=== PATIENT | female | born 1940 ===

== ENCOUNTER 2018-06-25 10:44 | Emergency (ER) | payer MEDICARE ==
[2018-06-25 10:45] VITALS: BMI 27.6
[2018-06-25 10:53] VITALS: TEMP 99.1
--- NOTE | 2018-06-25 10:54 | ED PDOC ---
Arrival/HPI - General Time Seen by Provider: 06/25/18 10:52 Historian: Patient - History of Present Illness Narrative History of Present Illness (Text): 06/25/18 10:53 78 y/o female, pmh including CHF/HLD/Hypothyroidism/osteoarthritis, taking aspirin and plavix, nkda, c/o feeling fatigue and osteoarthiritis pain for the past 2 weeks. Pt. stated that she has chronic osteoarthirits and CHF, been having generalized bodyache for the past 2 weeks, relief with tylenol, no fall or trauma, stated that she doesn't feel well, no chest pain or palpitation, no shortness of breath, no night sweat, no dizziness, no diarrhea, no other medical or psychological complaints. Past Medical History - Provider Review Nursing Documentation Reviewed: Yes - Cardiac Hx Cardiac Disorders: Yes Hx Congestive Heart Failure: Yes Hx Hypertension: Yes Hx Peripheral Edema: Yes - Pulmonary Hx Respiratory Disorders: No - Neurological Hx Neurological Disorder: Yes HX Cerebrovascular Accident: Yes - HEENT Hx HEENT Disorder: No - Renal Hx Renal Disorder: No - Endocrine/Metabolic Hx Endocrine Disorders: Yes Hx Hypothyroidism: Yes - Hematological/Oncological Hx Blood Disorders: No - Integumentary Hx Dermatological Disorder: No - Musculoskeletal/Rheumatological Hx Musculoskeletal Disorders: Yes Hx Rheumatoid Arthritis: Yes - Gastrointestinal Hx Gastrointestinal Disorders: No - Genitourinary/Gynecological Hx Genitourinary Disorders: Yes Other/Comment: fibroids - Psychiatric Hx Psychophysiologic Disorder: No Hx Substance Use: No - Surgical History Hx Orthopedic Surgery: Yes - Anesthesia Hx Anesthesia: Yes Hx Anesthesia Reactions: No Family/Social History - Physician Review Nursing Documentation Reviewed: Yes Family/Social History: Unknown Family HX Smoking Status: Former Smoker Hx Alcohol Use: No Hx Substance Use: No Allergies/Home Meds Allergies/Adverse Reactions: Allergies No Known Allergies Allergy (Verified 06/25/18 10:46) Home Medications: Home Meds Medication Instructions Recorded Confirmed Levothyroxine Sodium [Levo-T] 88 mcg PO 0630 12/08/17 06/25/18 Famotidine [Pepcid] 20 mg PO DAILY 02/08/18 06/25/18 Furosemide [Lasix] 40 mg PO DAILY 02/08/18 06/25/18 Latanoprost 0.005% Opht [XALATAN 2.5 ml OU HS 02/08/18 06/25/18 2.5 Ml] Review of Systems - Review of Systems Constitutional: Fatigue. absent: Fevers Eyes: absent: Vision Changes ENT: absent: Hearing Changes Respiratory: absent: SOB, Cough Cardiovascular: absent: Chest Pain Gastrointestinal: absent: Abdominal Pain, Nausea, Vomiting Musculoskeletal: Arthralgias. absent: Back Pain Skin: absent: Rash, Pruritis Neurological: absent: Headache, Dizziness Psychiatric: absent: Anxiety, Depression, Suicidal Ideation Physical Exam Vital Signs Reviewed: Yes Vital Signs Temp Pulse Resp BP Pulse Ox 06/25/18 10:48 99.1 F 62 17 170/94 H 98 Temperature: Afebrile Blood Pressure: Hypertensive Pulse: Regular Respiratory Rate: Normal Appearance: Positive for: Well-Appearing, Non-Toxic, Comfortable Pain Distress: Mild Mental Status: Positive for: Alert and Oriented X 3 - Systems Exam Head: Present: Atraumatic, Normocephalic Pupils: Present: PERRL Extroacular Muscles: Present: EOMI Conjunctiva: Present: Normal Ears: Present: NORMAL TM, Normal Canal. No: Erythema Mouth: Present: Moist Mucous Membranes Pharnyx: No: ERYTHEMA, EXUDATE, TONSILS ENLARGED Nose (External): Present: Atraumatic. No: Abrasion, Contusion, Laceration Nose (Internal): Present: Normal Inspection, No Active Bleeding. No: Rhinorrhea, Septal Hematoma, Epistaxis Neck: Present: Normal Range of Motion, Trachea Midline. No: Meningeal Signs, MIDLINE TENDERNESS, Paraspinal Tenderness, Lymphadenopathy Respiratory/Chest: Present: Clear to Auscultation, Good Air Exchange. No: Respiratory Distress, Accessory Muscle Use, Wheezes, Decreased Breath Sounds, Rales, Retracting, Rhonchi, Tachypneic, Tender to Palpation Cardiovascular: Present: Regular Rate and Rhythm, Normal S1, S2. No: Murmurs Abdomen: No: Tenderness, Distention, Peritoneal Signs, Rebound, Guarding Back: Present: Normal Inspection. No: CVA Tenderness Upper Extremity: Present: Normal Inspection, Normal ROM, Neurovascularly Intact, Capillary Refill < 2s. No: Cyanosis, Edema, Tenderness, Swelling, Deformity Lower Extremity: Present: Normal Inspection, Normal ROM, Neurovascularly Intact, Capillary Refill < 2 s. No: Edema, Tenderness, Swelling, Deformity Neurological: Present: GCS=15, CN II-XII Intact, Speech Normal, Motor Func Grossly Intact, Gait Normal, Memory Normal Skin: Present: Warm, Dry, Normal Color. No: Rashes Psychiatric: Present: Alert, Oriented x 3, Normal Insight, Normal Concentration Medical Decision Making ED Course and Treatment: 06/25/18 11:13 -Labs/bnp/ua -ekg -cxr -Observe and reassess 06/25/18 15:11 -EKG: NSR @ 78 BPM, no ST elevation or depression, no T wave inversion. -CXR show No active pulmonary disease. COPD. -Labs are non significant -BNP 2140 from 2470, no signs of CHF active clinically, no leg edema and chest ray show pleural effusion -UA show mild UTI -All labs and radiology results discussed with the patient, stated that she feels completely relief, refused further evaluation, and request to be discharged home. -Pt. is tolerating po solid and fluid. -Discharge home with keflex, bed rest, continue tylenol as needed, repeat the u rine test in 1 week, return to the Er for any new or worsening signs or symptoms. - RAD Interpretation Radiology Orders: Date of service: 06/25/2018 HISTORY: fatigue COMPARISON: No prior. FINDINGS: LUNGS: The lungs are hyperinflated and there is peribronchial thickening with chronic changes in both lungs. PLEURA: No pleural effusions or pneumothorax. CARDIOVASCULAR: Mild cardiomegaly and prominent central vasculature. No aortic atherosclerotic calcification present. OSSEOUS STRUCTURES: Within normal limits for the patient's age. VISUALIZED UPPER ABDOMEN: Normal. OTHER FINDINGS: None. IMPRESSION: No active pulmonary disease. COPD. Ct Mri Technologist: Radiologist - EKG Interpretation EKG Interpretation (Text): 06/25/18 11:39 NSR @ 78 BPM, no ST elevation or depression, no T wave inversion. Interpreted by ED Physician: Yes Type: 12 lead EKG - PA / TRAVEL NURSE / Resident Statement MD/DO has reviewed & agrees with the documentation as recorded. Disposition/Present on Arrival - Present on Arrival Any Indicators Present on Arrival: No History of DVT/PE: No History of Uncontrolled Diabetes: No Urinary Catheter: No History of Decub. Ulcer: No History Surgical Site Infection Following: None - Disposition Have Diagnosis and Disposition been Completed?: Yes Diagnosis: UTI (urinary tract infection), General medical examination Disposition: HOME/ ROUTINE Disposition Time: 15:13 Patient Plan: Discharge Condition: IMPROVED Additional Instructions: -Discharge home with keflex, bed rest, continue tylenol as needed, repeat the urine test in 1 week, return to the Er for any new or worsening signs or symptoms. Prescriptions: Cephalexin [Keflex] 500 mg PO BID #14 capsule Referrals: Jessy Betancur MD [Primary Care Provider] - Follow up with primary
--- NOTE | 2018-06-25 11:55 | RAD ---
Date of service: 06/25/2018 HISTORY: fatigue COMPARISON: No prior. FINDINGS: LUNGS: The lungs are hyperinflated and there is peribronchial thickening with chronic changes in both lungs. PLEURA: No pleural effusions or pneumothorax. CARDIOVASCULAR: Mild cardiomegaly and prominent central vasculature. No aortic atherosclerotic calcification present. OSSEOUS STRUCTURES: Within normal limits for the patient's age. VISUALIZED UPPER ABDOMEN: Normal. OTHER FINDINGS: None. IMPRESSION: No active pulmonary disease. COPD.
[2018-06-25 12:47] LABS: BASO # 0.01 K/mm3 (0.0-2.0); BASO % 0.1 % (0.0-3.0); EOS # 0.3 (0.0-0.7); EOS % 3.8 % (1.5-5.0); GRAN # 3.67 (1.4-6.5); GRAN % 46.5 % (50.0-68.0); LYMPH # 3.3 (1.2-3.4); LYMPH % 41.6 % (22.0-35.0); MEAN CELL VOLUME 74.7 fl (80.0-105.0); MEAN CORPUSCULAR HEMOGLOBIN 22.8 pg (25.0-35.0); MEAN CORPUSCULAR HGB CONC 30.6 g/dl (31.0-37.0); MEAN PLATELET VOLUME 11.1 fl (7.0-11.0); MONO # 0.6 (0.1-0.6); RBC 4.82 10^6/uL (3.5-6.1); WHITE BLOOD COUNT 7.9 10^3/uL (4.5-11.0)
[2018-06-25 12:54] LABS: BLOOD UREA NITROGEN 20 mg/dL (7-21); CALCIUM 9.5 mg/dL (8.4-10.5); GFR NON-AFRICAN AMERICAN 54
[2018-06-25 12:55] LABS: URINE BILIRUBIN NEGATIVE (NEGATIVE); URINE BLOOD TRACE-INTACT (NEGATIVE); URINE GLUCOSE (UA) NEGATIVE (NEGATIVE); URINE LEUKOCYTE ESTERASE TRACE Leu/uL (NEGATIVE); URINE PROTEIN NEGATIVE mg/dL (<30 mg/dL); URINE UROBILINOGEN 0.2 E.U./dL (<1 E.U./dL)
[2018-06-25 12:56] LABS: URINE APPEARANCE CLEAR (CLEAR); URINE COLOR LIGHT YELLOW (YELLOW)
[2018-06-25 12:59] LABS: B-TYPE NATRIURETIC PEPTIDE 2140 pg/mL (0-450)
[2018-06-25 13:04] LABS: ALB/GLOB RATIO 1.1 (1.1-1.8); ALBUMIN 4.1 g/dL (3.0-4.8); ALT/SGPT 21 U/L (7-56); AST/SGOT 47 U/L (14-36)
[2018-06-25 13:14] LABS: URINE EPITHELIAL CELLS 0 - 2 /hpf (0-5); URINE RBC 0 - 2 /hpf (0-2); URINE WBC 0 - 2 /hpf (0-6)
[2018-06-25 15:29] VITALS: BP 148/87; PULSE 64; RESP 17; O2SAT 98
--- NOTE | 2018-06-26 09:36 | CARD ---
APPROVED REPORT Date of service: 06/25/2018 EKG Measurement Heart [id number] <Conclusion> Normal sinus rhythm LVH by voltage
== END 2018-06-25 15:29 | disposition home or self-care (01) ==
LOC: ED 10:44
DX: N39.0 Urinary tract infection, site not specified (principal); I11.0 Hypertensive heart disease with heart failure; I50.9 Heart failure, unspecified; E78.5 Hyperlipidemia, unspecified; E03.9 Hypothyroidism, unspecified; M19.90 Unspecified osteoarthritis, unspecified site; Z86.73 Personal history of transient ischemic attack (TIA), and cerebral infarction without residual deficits; Z87.891 Personal history of nicotine dependence